=== PATIENT | male | born 1955 | race Caucasian/White ===

== ENCOUNTER → 2016-07-11 | Outpatient (CLI) | payer OTHER ==
[2016-05-26 11:00] VITALS: BP 118/80
[~2016-07-11] MED LIST: BYSTOLIC10 MG PO; CIPR500T PO; FENO160T PO; GADOBUTROL 10 MMOL/10 ML VIAL IV ONE; GADOBUTROL 7.5 MMOL/7.5 ML VIAL IV ONE; METR500T4 PO; RABE20TA5 PO; VALS1TAB22 PO
--- NOTE | 2016-07-11 12:42 | RAD ---
MR of the abdomen with and without contrast, 07/11/2016: History: Liver nodules Imaging was performed in axial and coronal planes utilizing a variety of imaging sequences including T2 weighted, fat suppressed T2 weighted and opposed phase gradient echo sequences. Fat-suppressed dynamic T1-weighted sequences were also obtained prior to and following an IV injection of 12 cc of the Gadavist contrast agent. Multiple hepatic nodules are present. These demonstrate increased signal on the T2-weighted scans. The largest of these lies centrally in the liver and measures 2.8 cm. There are are 2.7 and 2.5 cm nodules in the posterior aspect of the right lobe of the liver. There is a 16 mm nodule in the posterior aspect of the left lobe of the liver. A couple of other very tiny scattered T2 intense foci also noted. These nodules demonstrate decreased signal intensity relative to liver on the T1-weighted scans. The larger lesions demonstrate avid peripheral enhancement on the initial postcontrast scans with eventual fill-in centrally. One of the smaller lesions in the right lobe demonstrates initial nodular peripheral enhancement with slower fill in centrally. The lesion in the left lobe demonstrates prompt uniform enhancement. On the delayed images, all of these nodules demonstrate signal intensity similar to that of the blood pool. The findings are compatible with multiple hemangiomas. The liver demonstrates signal dropout on the opposed phase gradient echo sequence compatible with fatty infiltration. The pancreas and spleen are unremarkable. Several small renal lesions demonstrates signal characteristics compatible with cysts. The largest of these lies in the upper pole of the right kidney and measures proximally 17 mm. Several smaller cystic-appearing lesions are present in both kidneys. No enhancing renal mass is evident. IMPRESSION: 1. The enhancement characteristics of the multiple hepatic lesions are most compatible with hemangiomas. 2. Small bilateral renal cysts. 3. Hepatic steatosis
== END | disposition home or self-care (01) ==
LOC: MRI 08:54
PROVIDERS: ATTEND Family Medicine
DX: K76.9 Liver disease, unspecified (principal); N28.1 Cyst of kidney, acquired
CPT/HCPCS: 74183; A9585